=== PATIENT | female | born 1950 | race Caucasian/White ===

== ENCOUNTER → 2020-04-01 | Outpatient (CLI) | payer MEDICARE, OTHER ==
[~2020-04-01] MED LIST: ALBU90OI; BUPR150ER; CYCL10 PO; DIPH50; EFFEXOR 150 MG QD; ESOM20; GABA300; HYDCHL12.5; IBUP400 PO; K-TAB ER8 MEQ; LEVSOD125; LOSARTAN POTAS100 MG; METO10; Maxalt10 MG; NAPR500 PO; OMEP20ER PO; SUMA25; SUMATRIPTAN 50 MG; TOPI100; TRAM50 PO; TRAZ50; TRIA50; TRIAMTERENE; VENL150ER; VENL25 PO; VENL75; Zantac150 MG; [UNRECOGNIZED DRUG - REMARK]
== END | disposition home or self-care (01) ==
LOC: PLD 07:59 → LAB SHORT 07:59
DX: D48.5 Neoplasm of uncertain behavior of skin (principal); L81.4 Other melanin hyperpigmentation
CPT/HCPCS: 88305

== ENCOUNTER 2021-06-06 01:36 | Day surgery (SDC) | payer MEDICARE, OTHER ==
[2021-06-06] MEDS ORDERED: FURO20 PO (13:44)
[2021-06-06] MEDS ORDERED: BREO ELLIPTA 11 EAC1 INH (13:45)
== END 2021-06-06 15:00 | disposition home or self-care (01) ==
LOC: ATC 01:36
DX: U07.1 COVID-19 (principal); K21.9 Gastro-esophageal reflux disease without esophagitis; E07.9 Disorder of thyroid, unspecified; J45.909 Unspecified asthma, uncomplicated
CPT/HCPCS: 96365; Q0243

== ENCOUNTER 2023-11-10 09:59 | Day surgery (SDC) | payer OTHER ==
[~2023-11-10] VITALS: Ht 154.9 cm; Wt 101.7 kg
[~2023-11-10 09:59] MED LIST changes: -ALBU90OI; +ALBU90OI INH; +BREO ELLIPTA 11 EAC1 INH; -BUPR150ER; +BUPR150ER PO; -ESOM20; +ESOM20 PO; +FURO20 PO; -GABA300; +GABA600 PO; -HYDCHL12.5; +HYDROCHLOROTH12.5 MG PO; +LEVOTHYROXINE137 M11 PO; -LEVSOD125; -LOSARTAN POTAS100 MG; +LOSARTAN POTAS100 MG PO; +Lactated Ringer's 1,000 ML IV ONE; +MAXALT10 MG; +METFORMIN HCL500 MG PO; -Maxalt10 MG; +POTA20PAC; +TOPROL XL25 MG PO; +TRELEGY ELLIPT1 EAC1 INH; -VENL150ER; +VENL150ER PO; +propofoL 40 ML IV ONE
[2023-11-10] MEDS ORDERED: Lactated Ringer's 1,000 ML IV ONE (10:48)
--- NOTE | 2023-11-10 10:49 | NUR ---
11/10/23 1049 P[facility] in Day Surgery WITH STEADY GAIT. History, Chart, Medications and Allergies reviewed before start of procedure. Patient confirms NPO status and agrees with scheduled surgery. FAMILY AT BEDSIDE.
[2023-11-10] MEDS ORDERED: propofoL 20 ML IV ONE ×2 (11:12→11:25)
[2023-11-10] MEDS ORDERED: Lidocaine HCl 1% 30 ML SDV ONE (11:15)
[2023-11-10 12:20] VITALS: BP 138/90
== END 2023-11-10 12:01 | disposition home or self-care (01) ==
LOC: ORSCSDS 09:59
PROVIDERS: Surgery
PROC: 0DBN8ZX Excision of Sigmoid Colon, Via Natural or Artificial Opening Endoscopic, Diagnostic (ICD-10-PCS; principal; 2023-11-10 11:00)
PROC: 0DBK8ZX Excision of Ascending Colon, Via Natural or Artificial Opening Endoscopic, Diagnostic (ICD-10-PCS; principal; 2023-11-10 11:00)
DX: Z12.11 Encounter for screening for malignant neoplasm of colon (principal); D12.2 Benign neoplasm of ascending colon; D12.5 Benign neoplasm of sigmoid colon; K64.8 Other hemorrhoids; K57.30 Diverticulosis of large intestine without perforation or abscess without bleeding; E11.9 Type 2 diabetes mellitus without complications; E03.9 Hypothyroidism, unspecified; K21.9 Gastro-esophageal reflux disease without esophagitis; I10 Essential (primary) hypertension; E78.5 Hyperlipidemia, unspecified; J45.909 Unspecified asthma, uncomplicated; E66.9 Obesity, unspecified; Z68.41 Body mass index [BMI] 40.0-44.9, adult; Z79.84 Long term (current) use of oral hypoglycemic drugs; Z79.899 Other long term (current) drug therapy
CPT/HCPCS: 82947; 88305; J2704; J7120